=== PATIENT | female | born 1945 | race Caucasian/White ===

== ENCOUNTER 2017-08-22 01:09 | Day surgery (SDC) | payer MEDICARE, OTHER ==
[2017-08-22] VITALS (7 sets, daily range): BP systolic 75–122; BP diastolic 41–71
[~2017-08-22] VITALS: Ht 157.5 cm; Wt 71.2 kg
[~2017-08-22 01:09] MED LIST: AMLO-99 PO; AMOX-559 PO; ASCO-182 PO; BACL-1 PO; CALC-1046 PO; CALC500T42 PO; CHOL10005 PO; CHONDROITIN; DIPH0.5D21 IM; FISH OIL1 CAP PO; GABA-549 PO; GLUC-125 PO; GLUC500C29 PO; LISI-347 PO; LISI-355 PO; MEL7.5 PO; MET800 PO; METO50TA19 PO; MULT-820 PO; MULT1CAP59 PO; OMEG-11 PO; PIRO-91 PO; PRA20 PO; PRAV20TA65 PO; VALS-25 PO; VITA100C12 PO; VITAMIN C
[2017-08-22] MEDS ORDERED: LIDOCAINE/SOD BICARB 8.4% SYR ID ONE (08:45)
[2017-08-22] MEDS ORDERED: MIDAZOLAM 2 MG/2 ML VIAL IVP PRN (08:45)
[2017-08-22] MEDS ORDERED: NORMOSOL R SOLN(*) 1000 ML BAG 1,000 ML IV PRN (08:45)
== END 2017-08-22 10:49 | disposition home or self-care (01) ==
LOC: OR 01:09
PROVIDERS: ATTEND Internal Medicine
DX: Z12.11 Encounter for screening for malignant neoplasm of colon (principal); Z86.010 Personal history of colon polyps; K57.30 Diverticulosis of large intestine without perforation or abscess without bleeding; K64.8 Other hemorrhoids
CPT/HCPCS: 00812; G0105

== ENCOUNTER → 2017-11-12 | Outpatient (CLI) | payer MEDICARE, OTHER | LOC: LAB 13:27 | PROVIDERS: ATTEND Physician Assistant | DX: N28.9 Disorder of kidney and ureter, unspecified (principal) | CPT/HCPCS: 36415; 82565 ==

== ENCOUNTER → 2017-11-14 | Outpatient (CLI) | payer MEDICARE, OTHER ==
[~2017-11-14] MED LIST changes: +GADOBENATE 529MG/1ML 15ML VIAL IVP ONE
--- NOTE | 2017-11-14 15:51 | RADIOLOGY IMAGING REPORT ---
FACILITY: [facility] PATIENT NAME: Susana Valverde : 1945 MR: [id number] V: [id number] EXAM DATE: ORDERING PHYSICIAN: DEBBIE COLLINS TECHNOLOGIST: Location: [facility] [place] Patient: Susana Valverde : 1945 Visit/Account:[id number] Date of Sevice: 11/14/2017 DEXA Scan Clinical history: Spinal stenosis bilateral hip replacement. Comparison: DEXA scan from 05/17/2009. LUMBAR SPINE: The bone mineral density (BMD) measured from L1-L4 correlates with a Z-score 1.1 and a T-score of -0. 4 which is Normal as defined by the World Health Organization. The corresponding risk of fracture in the lumbar spine is Not increased compared with a young adult reference population. This value has decreased by -1.3 % since the prior study. More than 5% change is considered significant. FOREARM: The bone mineral density (BMD) measured in the ULTRADISTAL Left forearm, where trabecular bone predom inates, correlates with a Z-score of -2.1 and a T-score of -4.1 which is osteoporosis as defined by t he World Health Organization. The corresponding risk of fracture in the distal forearm is greater th an 16 times increased compared with a young adult reference population. The bone mineral density (BMD) in the MIDSHAFT of the forearm, where cortical bone predominates, lennox elates with a Z-score of -0.4 and a T-score of -2.4 which is osteopenia as defined by the World Healt h Organization. The corresponding risk of fracture in the midshaft of the forearm is 4-6 times increa sed compared with a young adult reference population. IMPRESSION: 1. Lumbar spine: Normal. There has been 1.3% decrease in the bone mineral density since the previou s exam. 2. Left Forearm: Osteoporosis. The next DEXA scan of this patient should include the following sites: L1-L4 and the left forearm. FRAX? WHO Fracture Risk Assessment Tool link: <http://www.shef.ac.uk/FRAX/tool.jsp?locationValue=9> PLEASE NOTE: 1) The World Health Organization defines low BMD as follows: T-score Normal > -1 Osteopenia < -1 and > -2.5 Osteoporosis < -2.5 without fractures Established osteoporosis < -2.5 with fractures 2) In general, you may wish to consider: Diagnosis Treatment Follow-up DEXA Normal BMD Prevention 2-3 years Osteopenia Prevention/therapy 1-2 years Osteoporosis Therapy Yearly 3) Fracture risk estimated from the T-score is more accurate for vertebral fractures (often spontane ous) than for hip fractures. Report Dictated By: Alia Mattson MD at 11/14/2017 3:45 PM Report E-Signed By: Alia Mattson MD at 11/14/2017 3:47 PM WSN:[email or web address]
--- NOTE | 2017-11-14 18:51 | RADIOLOGY IMAGING REPORT ---
[place] [facility] [place] Susana Valverde : 1945 MR: [id number] V: [id number] EXAM DATE: ORDERING PHYSICIAN: DEBBIE COLLINS TECHNOLOGIST: Location: [facility] - [place], [place] Patient: Susana Valverde : 1945 Visit/Account:[id number] Date of Sevice: 11/14/2017 EXAMINATION: L SPINE W W/O CONTRAST INDICATION: Neurogenic claudication COMPARISON: March 24, 2015 TECHNIQUE: Multiplane MR imaging was performed through the lumbar spine without and with contrast. 1 5 ml multihance injected. FINDINGS: Vertebral body height: Normal vertebral body heights. L4 laminectomy defect. Conus position/signal: Normal Marrow signal: Enhancing degenerative marrow edema surrounds the L2-3 and L3-4 disc spaces. Enhancement: No pathologic enhancement in the canal. L2-3 facet synovial enhancement. Mild left lat eral paraspinal soft tissue enhancement, axial T1 postcontrast image 1 is unchanged. Extraspinal structures including psoas muscles/paraspinal soft tissues: Normal L1-2: Small disc protrusion is new. No canal narrowing. Normal foramen. L2-3: Severe unchanged disc space degeneration, unchanged posterior endplate spurring. Unchanged lig amentum flavum thickening. Mild unchanged canal narrowing. Mild unchanged right foraminal narrowing . Moderate to severe unchanged left foraminal narrowing. L3-4: Unchanged facet arthropathy and ligamentum flavum thickening. 5 mm AP dimension disc protrusio n is stable to slightly decreased in size. Severe unchanged canal narrowing. Severe unchanged right foraminal narrowing. Severe unchanged left foraminal narrowing. L4-5: Severe unchanged disc space degeneration. Unchanged posterior endplate spurring, unchanged neelima ateral lateral recess narrowing. Moderate to severe unchanged right foraminal narrowing. Moderate u nchanged left foraminal narrowing. L5 S1: Severe unchanged disc space degeneration. No canal narrowing. Moderate to severe unchanged r ight foraminal narrowing. Severe unchanged left foraminal narrowing. IMPRESSION: 1. Severe unchanged L3-4 canal narrowing. 2. Mild unchanged L2-3 canal narrowing. 3. Multilevel degenerative disc disease as before. 4. Multilevel foraminal narrowing similar to prior, see level by level comments above. Report Dictated By: Johny Garner MD at 11/14/2017 6:39 PM Report E-Signed By: Johny Garner MD at 11/14/2017 6:47 PM WSN:[id number]
== END ==
LOC: RAD 03:33
PROVIDERS: ATTEND Nurse Practitioner Acute Care
DX: M81.0 Age-related osteoporosis without current pathological fracture (principal); M51.36 Other intervertebral disc degeneration, lumbar region; M48.062 Spinal stenosis, lumbar region with neurogenic claudication
CPT/HCPCS: 72158; 77080; A9577

== ENCOUNTER → 2017-12-23 | Outpatient (CLI) | payer MEDICARE, OTHER ==
[~2017-12-23] MED LIST changes: -DIPH0.5D21 IM; +DIPH0.5S4 IM; -GADOBENATE 529MG/1ML 15ML VIAL IVP ONE
[2017-12-23 12:27] LABS: PLATELET COUNT, AUTOMATED 245 K/uL (150-450)
== END ==
LOC: LAB 11:54
PROVIDERS: ATTEND Emergency Medicine
DX: I10 Essential (primary) hypertension (principal); M81.0 Age-related osteoporosis without current pathological fracture; R51 Headache
CPT/HCPCS: 36415; 82040; 82247; 82306; 82310; 82374; 82435; 82565; 82947; 83970; 84075; 84132; 84155; 84295; 84450; 84460; 84520; 85025; 85651

== ENCOUNTER → 2018-03-05 | Outpatient (CLI) | payer MEDICARE, OTHER | LOC: LAB 11:38 | PROVIDERS: ATTEND Nurse Practitioner | DX: C44.319 Basal cell carcinoma of skin of other parts of face (principal) | CPT/HCPCS: 88305; 88342; 88344 ==

== ENCOUNTER → 2018-08-08 | Outpatient (REF) | payer MEDICARE, OTHER ==
[~2018-08-08] MED LIST changes: +AMLO-127 PO; -AMLO-99 PO; +TRAM-420 PO
== END ==
LOC: LAB 12:36
PROVIDERS: ATTEND Internal Medicine Endocrinology, Diabetes & Metabolism
DX: M81.0 Age-related osteoporosis without current pathological fracture (principal)
CPT/HCPCS: 82340; 82570

== ENCOUNTER → 2018-08-11 | Outpatient (CLI) | payer MEDICARE, OTHER ==
--- NOTE | 2018-08-11 15:41 | EKG ---
FACILITY: [facility] - [place] PATIENT NAME: ZHENG BERGMAN : [id number] MR: [id number] V: [id number] EXAM DATE: ORDERING PHYSICIAN: VIDA HOYT TECHNOLOGIST: WINSTON Test Reason : PALPITATIONS Blood Pressure : / mmHG Vent. Rate : 050 BPM Atrial Rate : 050 BPM P-R Int : 206 ms QRS Dur : 094 ms QT Int : 456 ms P-R-T Axes : 065 022 025 degrees QTc Int : 415 ms Sinus bradycardia Otherwise normal ECG No previous ECGs available Confirmed by VIDA HOYT ([id number]) on 08/13/2018 2:50:13 PM Referred By: LAI Confirmed By:VIDA HOYT
== END ==
LOC: RESP 14:41
PROVIDERS: ATTEND Emergency Medicine
DX: Z02.9 Encounter for administrative examinations, unspecified (principal)

== ENCOUNTER → 2018-08-12 | Outpatient (CLI) | payer MEDICARE, OTHER ==
--- NOTE | 2018-08-17 11:35 | RT HOLTER TEST ---
FACILITY: [facility] - [place] PATIENT NAME: ZHENG BERGMAN : [id number] MR: [id number] V: [id number] EXAM DATE: ORDERING PHYSICIAN: VIDA HOYT TECHNOLOGIST: MEI Hook-up date: 2018-08-12 13:36:00 Duration: 45:57:00 Test Indications: PALPITATIONS Medications: SEE DIARY [id number] QRS complexes 33 Ventricular ectopics which represent <1 % of total QRS comp. 2308 Supraventricular ectopics which represent 1 % of total QRS comp. * Paced QRS complexes which represent % of total QRS comp. VENTRICULAR ECTOPY 33 Isolated 0 Bigeminal Cycles 0 Couplets 0 Runs 0 Beats in Runs * Beats LONGEST at * BPM at :: -- * Beats FASTEST at * BPM at :: -- SUPRAVENTRICULAR ECTOPY 2089 Isolated 39 Couplets 35 Runs 141 Beats in Runs 13 Beats LONGEST at 108 BPM at 00:42:16 2018-08-14 6 Beats FASTEST at 131 BPM at 15:53:16 2018-08-12 HEART RATES 46 MIN at 08:24:16 2018-08-13 66 AVG 132 MAX at 15:53:18 2018-08-12 LONGEST RR 1.392 secs at 11:19:23 2018-08-13 S-T LEVELS Channel 1 -12.800 mm MIN at 13:36:00 2018-08-12 -12.800 mm MAX at 13:36:00 2018-08-12 Channel 2 -12.800 mm MIN at 13:36:00 2018-08-12 -12.800 mm MAX at 13:36:00 2018-08-12 Channel 3 -12.800 mm MIN at 13:36:00 2018-08-12 -12.800 mm MAX at 13:36:00 2018-08-12 Sinus rhythm Frequent Premature supraventricular complexes Premature ventricular complexes Confirmed by MAREN LOVELL ([id number]) on 08/17/2018 11:35:29 AM Referred By: Overread By: MAREN LOVELL
== END ==
LOC: RESP 06:42
PROVIDERS: ATTEND Emergency Medicine
DX: I49.3 Ventricular premature depolarization (principal)
CPT/HCPCS: 93225; 93226

== ENCOUNTER → 2018-10-06 | Outpatient (CLI) | payer MEDICARE, OTHER ==
--- NOTE | 2018-10-07 17:25 | RADIOLOGY IMAGING REPORT ---
FACILITY: [facility] - [place] PATIENT NAME: ZHENG BERGMAN : [id number] MR: [id number] V: [id number] EXAM DATE: [id number] ORDERING PHYSICIAN: VIDA HOYT TECHNOLOGIST: Cristina Franco PROCEDURE:BILATERAL DIGITAL SCREENING MAMMOGRAM WITH CAD ASSISTED INTERPRETATION & 3D TOMOSYNTHESIS COMPARISON:Prior mammograms dated 07/25/16, 07/12/15, 07/06/14, 06/30/13, 04/08/12 INDICATIONS:screening FINDINGS: The breasts are heterogeneously dense which can obscure small masses. The parenchymal pattern has remained stable when allowing for difference in mammographic technique & patient positioning. DIAGNOSTIC CATEGORY 1--NEGATIVE. RECOMMENDATIONS: ROUTINE MAMMOGRAM AND CLINICAL EVALUATION. IMPRESSION: BIRADS 1: Negative. No significant abnormality is seen. Dictated by: Alia Mattson M.D. on 10/07/2018 at 8:21 Transcribed by: ARMIDA on 10/07/2018 at 10:06 Approved by: Alia Mattson M.D. on 10/07/2018 at 17:24 [facility]
== END ==
LOC: MAMO 01:49
PROVIDERS: ATTEND Emergency Medicine
DX: Z12.31 Encounter for screening mammogram for malignant neoplasm of breast (principal)
CPT/HCPCS: 77063; 77067

== ENCOUNTER → 2019-01-15 | Outpatient (CLI) | payer MEDICARE, OTHER ==
[~2019-01-15] MED LIST changes: +IOPAMIDOL 76% 100 ML INFUS BTL 100 ML ONE; +NS(*) 0.9% 50 ML BAG 50 ML ONE; +TRAZ50TA52 PO
--- NOTE | 2019-01-15 14:10 | RADIOLOGY IMAGING REPORT ---
[place] [facility] [place] Susana Valverde : 1945 MR: [id number] V: [id number] EXAM DATE: [id number] ORDERING PHYSICIAN: VIDA HOYT TECHNOLOGIST: Location: [facility] - [place] Patient: Susana Valverde : 1945 Visit/Account:[id number] Date of Sevice: 01/15/2019 CT ANGIOGRAM OF THE CHEST WITH INTRAVENOUS CONTRAST, PE PROTOCOL DATE OF EXAM: 01/15/2019 13:04 COMPARISON: None recent. INDICATION: elevated D-dimer. TECHNIQUE: Contrast enhanced chest CT performed during the injection of 75 ml of Isovue-370. Three-d imensional (MIP) reconstructions were performed. FINDINGS: Negative for pulmonary arterial embolus. Thyroid: Unremarkable. Thoracic inlet: There is no thoracic inlet lymphadenopathy. Heart and great vessels: Heart size is normal. Mediastinum and jovana: No mediastinal or hilar adenopathy. Lungs and pleura: Mild dependent atelectasis. Small cysts posteriorly at the left lung base. No ef fusion, consolidation, or pneumothorax. Mild emphysema is suggested. Breast and axilla: Breast tissue is incompletely imaged. Bones and soft tissues: No acute osseous abnormality. Upper abdomen: Moderate sized hiatal hernia. IMPRESSION: 1. Negative for pulmonary arterial embolus. 2. Chronic findings as above. One of the following dose optimization techniques was utilized in the performance of this exam: Autom ated exposure control; adjustment of the mA and/or kV according to the patient's size; or use of an i terative reconstruction technique. Specific details can be referenced in the facility's radiology C T exam operational policy. Report Dictated By: Kiersten Ramesh MD at 01/15/2019 1:53 PM Report E-Signed By: Kiersten Ramesh MD at 01/15/2019 2:05 PM WSN:[email or web address]
== END ==
LOC: CT 13:01
PROVIDERS: ATTEND Emergency Medicine
DX: R79.89 Other specified abnormal findings of blood chemistry (principal)
CPT/HCPCS: 71275; J7050; Q9967

== ENCOUNTER → 2019-01-15 | Outpatient (CLI) | payer MEDICARE, OTHER ==
[~2019-01-15] MED LIST changes: -IOPAMIDOL 76% 100 ML INFUS BTL 100 ML ONE; -NS(*) 0.9% 50 ML BAG 50 ML ONE
== END ==
LOC: LAB 11:53
PROVIDERS: ATTEND Emergency Medicine
DX: R09.02 Hypoxemia (principal)
CPT/HCPCS: 36415; 83880; 85379

== ENCOUNTER → 2019-01-19 | Outpatient (CLI) | payer MEDICARE, OTHER ==
--- NOTE | 2019-01-19 12:26 | RADIOLOGY IMAGING REPORT ---
FACILITY: [facility] [place] PATIENT NAME: Susana Valverde : 1945 MR: [id number] V: [id number] EXAM DATE: ORDERING PHYSICIAN: LATESHA MERCADO TECHNOLOGIST: Location: [facility] - [place] Patient: Susana Valverde : 1945 Visit/Account:[id number] Date of Sevice: 01/19/2019 EXAMINATION: MR SPINE LUMBAR W/O CON INDICATION: Radiculopathy, pain COMPARISON: November 14, 2017 TECHNIQUE: Multiplane MR imaging was performed through the lumbar spine without contrast. FINDINGS: Vertebral bodies and posterior elements: Normal vertebral body heights. Unchanged L4 laminectomy defe ct. Conus position/signal: Normal Marrow signal: Minimal degenerative marrow edema surrounds the L2-3 and L3-4 disc spaces. Extraspinal structures including psoas muscles/paraspinal soft tissues: Normal. Other: Unchanged convexity right scoliosis. L1-2: Small disc protrusion eccentric to the left has increased in size. Mild left lateral recess ramos rowing has increased. Normal foramen. L2-3: Severe unchanged disc space degeneration. Unchanged posterior endplate spurring and ligamentum flavum thickening. Mild unchanged canal narrowing. Moderate to severe unchanged left foraminal narrow ing. Moderate right foraminal narrowing is better visualized on current exam but likely unchanged in hindsight review. L3-4: Unchanged disc protrusion, facet arthropathy and ligamentum flavum thickening. Severe unchanged canal narrowing. Severe unchanged bilateral foraminal narrowing. L4-5: Severe unchanged disc space degeneration. Unchanged posterior endplate spurring. Unchanged bila teral lateral recess narrowing. Moderate to severe right and moderate left unchanged foraminal narrow ing. L5-S1: Unchanged severe disc space degeneration. No disc protrusion or canal narrowing. Moderate to s evere right and severe left unchanged foraminal narrowing. IMPRESSION: 1. Small L1-2 disc protrusion eccentric to the left has increased in size with resultant mild increas ed left lateral recess narrowing. 2. Otherwise no significant change compared to prior. 3. Severe unchanged L3-4 canal narrowing. 3. Multilevel unchanged foraminal narrowing most pronounced at L2-3 through L4-5, see level by level comments above. Report Dictated By: Johny Garner MD at 01/19/2019 12:07 PM Report E-Signed By: Johny Garner MD at 01/19/2019 12:19 PM WSN:[email or web address]
== END ==
LOC: MRI 00:40
PROVIDERS: ATTEND Physician Assistant
DX: M51.36 Other intervertebral disc degeneration, lumbar region (principal)
CPT/HCPCS: 72148

== ENCOUNTER → 2019-01-25 | Outpatient (CLI) | payer MEDICARE, OTHER | LOC: RESP 10:18 | PROVIDERS: ATTEND Emergency Medicine | DX: R09.02 Hypoxemia (principal) | CPT/HCPCS: 94060; 94726; 94729 ==

== ENCOUNTER 2019-01-26 00:56 | Outpatient (RCR) | payer MEDICARE, OTHER ==
[2019-01-27] MEDS ORDERED: TRAM-420 PO ×2 (10:25→13:49)
[2019-01-27] MEDS ORDERED: TRAZ50TA52 PO (17:21)
[2019-01-28] MEDS ORDERED: ABAL1.56 SUBQ (11:00)
== END 2019-01-26 18:00 | disposition home or self-care (01) ==
LOC: RESP 00:56
PROVIDERS: ATTEND Emergency Medicine
DX: I51.7 Cardiomegaly (principal)
CPT/HCPCS: 93306

== ENCOUNTER → 2019-02-18 | Outpatient (CLI) | payer MEDICARE, OTHER ==
[~2019-02-18] MED LIST changes: +ABAL1.56 SUBQ; +LISI-362 PO; +REGADENOSON 0.4 MG/5 ML SYR ONE; +TIO18R INH
--- NOTE | 2019-02-19 12:00 | RADIOLOGY IMAGING REPORT ---
FACILITY: [facility] PATIENT NAME: Susnaa Valverde : 1945 MR: [id number] V: [id number] EXAM DATE: ORDERING PHYSICIAN: VIDA HOYT TECHNOLOGIST: Location: [facility] Patient: Susana Valverde : 1945 Visit/Account:[id number] Date of Sevice: 02/18/2019 EXAMINATION: Single isotope SPECT imaging with regadenoson infusion and gated SPECT imaging. DATE OF EXAMINATION: February 18, 2019. DATE OF INTERPRETATION: February 19, 2019. REQUESTING PHYSICIAN: VIDA HOYT. INDICATION: The patient is a 73-year-old female evaluated for dyspnea on exertion. PROCEDURE: After informed consent the patient received an intravenous injection of 11.9 mCi of Tc-99 m sestamibi followed at an appropriate time interval by rest imaging. The patient then subsequently received an intravenous infusion of 0.4 mg of regadenoson per protocol without complication. Resting heart rate was 47 bpm with a peak heart rate of 77 bpm. Blood pressure at rest was 138 / 73 and fol lowing infusion was 142 / 80. Baseline EKG demonstrates sinus bradycardia. There were no EKG change s of ischemia following infusion. Symptoms were nonspecific. The patient then received an intraveno us injection of 28.2 mCi of Tc-99m sestamibi followed by stress imaging. RAW DATA: Examination of the summed raw data revealed a good quality study. MYOCARDIAL PERFUSION: The tomographic images demonstrate a mild decrease in myocardial perfusion tra cer uptake in the mid to apical inferior and inferolateral bazzi seen on both stress and rest imaging . No reversible defect noted. GATED IMAGES: The gated images demonstrate an ejection fraction greater than 70% with no wall motion abnormality. IMPRESSION: 1. Normal myocardial perfusion scan with no evidence of ischemia. The mild fixed defect in the mid t o apical inferior and inferolateral bazzi are likely diaphragm attenuation artifacts 2. Normal myocardial perfusion scan. 3. Normal LV systolic function; LVEF greater than 70%. 4. Based on the results of this exam, the patient appears to be at low risk for future cardiovascular events. Report Dictated By: Izzy Andrews at 02/19/2019 11:50 AM Report E-Signed By: Izzy Andrews at 02/19/2019 11:52 AM WSN:[id number]
== END ==
LOC: NUC 00:32
PROVIDERS: ATTEND Emergency Medicine
DX: R06.00 Dyspnea, unspecified (principal)
CPT/HCPCS: 78452; A9500; J2785